=== PATIENT | female | born 2000 | race Hispanic/Latino ===

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

== ENCOUNTER 2019-01-10 20:41 | Observation (INO) | payer SELFPAY ==
[~2019-01-10 20:41] MED LIST: Dexamethasone 20 MG/5 ML VIAL ONE; Glycopyrrolate 0.2 MG/ML 5 ML SYRINGE ONE; Lidocaine 1% PF 5 ML VIAL ONE; Ondansetron PF 4 MG/2 ML Vial ONE; PROPOFOL 200 MG/20 ML VIAL ONE; Rocuronium Bromide 10 MG/ML (10ML VIAL) ONE; Succinylcholine Chloride 20 MG/ML 10 ml SYRINGE FS ONE
[2019-01-10] MEDS ORDERED: Bupivacaine/Epinephrine 0.25% 30 ML VIAL ONE (21:45)
[2019-01-10] MEDS ORDERED: Fentanyl 100 MCG/2 ML VIAL ONE (21:48)
[2019-01-10] MEDS ORDERED: Insulin Regular 300 UNITS/3 ML VIAL SC SCH (22:00)
[2019-01-10] MEDS ORDERED: Ondansetron PF 4 MG/2 ML Vial IVP PRN (22:10)
[2019-01-10] MEDS ORDERED: Promethazine HCl 25 MG/ML VIAL IM PRN ×2 (22:10→23:17)
[2019-01-10] MEDS ORDERED: Dextrose 50% Abboject 50 ML SYRINGE SLOW IVP PRN (22:10)
[2019-01-10] MEDS ORDERED: HumaLOG 300 UNITS/3 ML VIAL SC PRN (22:10)
[2019-01-10] MEDS ORDERED: Dextrose 5% in Water 1,000 ML IV PRN (22:10)
[2019-01-10] MEDS ORDERED: Acetaminophen 500 MG TAB PO PRN (22:15)
[2019-01-10] MEDS ORDERED: traMADol HCl 50 MG TAB PO PRN (22:15)
[2019-01-10] MEDS ORDERED: Ibuprofen 800 MG TAB PO PRN (22:15)
[2019-01-10] MEDS ORDERED: ceFOXitin 1 GM VIAL ONE (22:40)
[2019-01-10 23:07] VITALS: BMI 33.0
--- NOTE | 2019-01-10 23:15 | HP ---
HISTORY OF PRESENT ILLNESS: Ms. Fabian is a 18-year-old woman with history of chronic depression, type 1 diabetes mellitus, and gastroesophageal reflux disease, who presented to the Hospital with periumbilical abdominal pain, which started 2 days previously. The pain had intensified and settled in the right lower quadrant since yesterday. The pain is now associated with multiple episodes of nausea with one bout of emesis. She admits to chills, but no fever. She has alternating episodes of constipation and diarrhea for the last 2 days. The patient was evaluated with a CT scan of the abdomen and pelvis and transferred to the care of this surgical team. PAST MEDICAL HISTORY: Significant for type 1 diabetes mellitus since age 9, chronic anxiety/depression, and gastroesophageal reflux disease. PAST SURGICAL HISTORY: Pertinent for tonsillectomy and adenoidectomy. SOCIAL HISTORY: She is single. She lives with her parents. She used to smoke a pack of cigarettes per week and did so for about 5 years. She has not smoked over the last 3 months. She denies any ethanol or illicit drug abuse. FAMILY HISTORY: Notable for both parents with diabetes mellitus, mother with heart disease, father with hyperlipidemia. She has a maternal grandmother with liver cancer. CURRENT MEDICATIONS: Lantus insulin 80 units twice daily. She does not take any medicines for the gastroesophageal reflux disease or depression. ALLERGIES: TO LATEX, NATURAL RUBBER, AND ADHESIVE TAPE. SHE HAS NO KNOWN DRUG ALLERGIES, OTHERWISE. REVIEW OF SYSTEMS: A 10-point review of systems is essentially unremarkable except as stated in the past medical history and chief complaint. PHYSICAL EXAMINATION: GENERAL: This reveals a 18-year-old normally developed woman, who is otherwise coherent and interactive and appears stated age. The patient is alert and oriented x3, appears to be in no acute distress at the time of my evaluation. VITAL SIGNS: Blood pressure 124/82, pulse is 96, respiratory rate is 18, temperature 98.7 degrees Fahrenheit, and oxygen saturation is 99% on room air. HEENT: Normocephalic and atraumatic. Her pupils are equal, round, and reactive to light and accommodation. Extraocular muscles are intact bilaterally. No scleral icterus present. HEART: Regular rate and rhythm. No murmurs or gallops auscultated. LUNGS: Clear to auscultation bilaterally. Breathing, regular and nonlabored. ABDOMEN: Soft and obese. She has right lower quadrant tenderness at McBurney' s. She has a positive Rovsing sign. Liver and spleen nonpalpable below costal margin. NEUROLOGIC: No focal deficits present. EXTREMITIES: 2+ radial and pedal pulses bilaterally. No ankle edema is present. LABORATORY STUDIES: From [place] include a CBC with 11,100 white blood cells, hemoglobin and hematocrit of 14.0 and 42.7 respectively. Platelet count 237,000. Metabolic profile: Sodium 135, potassium is 3.7, chloride is 104, bicarbonate 19, BUN 4, creatinine is 0.60, glucose was 334, repeated here bedside glucose noted at 277. Serum test is negative. DIAGNOSTIC DATA: I have personally reviewed the CT scan of the abdomen and pelvis obtained from [place], which is remarkable for dilated appendix with periappendiceal fat-stranding and small free pelvic fluid. IMPRESSION: Acute appendicitis. PLAN: 1. Laparoscopic appendectomy. 2. I have advised the patient of the risks and benefits of the proposed surgery to include, but not limited to bleeding, infection, injury to bowel or surrounding structures. 3. These informations will be provided with the patient in the presence of her parents. 4. They all indicate understanding of information given, and the patient is going to consent for this admission and surgical intervention. Job ID: [id number] [facility]
[2019-01-10] MEDS ORDERED: Ondansetron HCl/PF 4 MG/2 ML Vial IVP PRN (23:17)
[2019-01-10] MEDS ORDERED: Meperidine HCl/PF 25 MG/ML VIAL ONE (23:17)
[2019-01-10] MEDS ORDERED: Promethazine HCl 25 MG/ML VIAL SLOW IVP PRN (23:17)
[2019-01-10] MEDS ORDERED: Meperidine HCl/PF 25 MG/ML VIAL SLOW IVP PRN (23:17)
[2019-01-10] MEDS ORDERED: Insulin Regular 300 UNITS/3 ML VIAL ONE (23:55)
--- NOTE | 2019-01-11 00:01 | OP ---
DATE OF PROCEDURE: 01/10/2019 PREOPERATIVE DIAGNOSIS: Acute appendicitis. POSTOPERATIVE DIAGNOSIS: Acute appendicitis. OPERATION PERFORMED: Laparoscopic appendectomy. ANESTHESIA: General endotracheal. ESTIMATED BLOOD LOSS: 5 mL. FLUIDS GIVEN: 1000 mL of crystalloids. COUNTS: Sponge and instrument counts were verified as correct x2. COMPLICATIONS: None apparent at the time of operation. INDICATIONS FOR OPERATION: This is a 18-year-old woman presented with 2-day history of periumbilical abdominal pain which is settled in the right lower quadrant over the last 24 hours. Clinical radiographic examination was consistent with acute appendicitis for which the patient was brought to the operating room for laparoscopic appendectomy. Findings are consistent with dilated appendix in a retrocecal position. No evidence of perforation present. DESCRIPTION OF PROCEDURE: Informed consent was obtained from the patient. She was brought to the operating room and placed in supine position. Following general anesthesia, a Storey catheter was inserted and placed to bedside drain. The abdomen was sterilely prepped and draped in usual fashion. The skin below the umbilicus was infiltrated with 0.25% Marcaine with epinephrine. A small curvilinear infraumbilical incision was made using an 11 scalpel. The umbilical stalk was grasped with Jayesh and elevated. A Veress needle was inserted through the incision and placed in the peritoneal cavity through which the abdomen was insufflated with 3 L of CO2 gas. Intraabdominal pressure was noted at 2 mmHg. Following abdominal insufflation, the Veress needle was removed. A 5-mm trocar was introduced using a Visiport under laparoscopy. Laparoscopy confirmed proper placement of the port, no injuries to underlying structures. Additional laparoscopy revealed the right lower quadrant partially obscured by omental adhesions. Under direct laparoscopy, one 5 mm suprapubic and another 5 mm left lower quadrant ports were placed after the overlying skin was infiltrated 0.25% Marcaine with epinephrine and appropriate incision was made. The patient was placed in a Trendelenburg position, rotated to her left. I introduced a Prestige grasper through the left lower quadrant port site using this to bluntly take down omental adhesions to reveal the cecum and the terminal ileum which to the right lateral gutter. I then used a LigaSure device to take down fibrotic attachments to the right lateral gutter, mobilizing the terminal ileum and the cecum medially. A retrocecal appendix was noted. I introduced the Endo [place] forceps through the suprapubic port site grasping the appendix which was elevated. Then used LigaSure device to serially divide the mesoappendix down to the base with good hemostasis. The appendix itself was divided at the appendiceal-cecal junction between endo-loops. The appendix was delivered of the abdominal cavity using an EndoCatch. Operative site was inspected for good hemostasis. Finding no other pathology, laparoscopy was terminated. Fascia of the left lower quadrant port was closed using 0 Vicryl suture and endo-closure device under laparoscopy. The abdomen was desufflated. All ports and instruments were removed and accounted for. The skin incision was closed using 4-0 Monocryl suture in a subcuticular fashion. Dermabond was applied over the incisional closure. The patient tolerated the operation without any apparent complication and was returned to the recovery room in satisfactory condition. Job ID: [id number]
[2019-01-11] MEDS ORDERED: Fentanyl 100 MCG/2 ML VIAL ONE (00:12)
[2019-01-11] MEDS: traMADol HCl 50 MG TAB PO PRN ×2 (03:05→11:08)
[2019-01-11 08:51] VITALS: BP 109/66; TEMP 98.4
[2019-01-11] MEDS ORDERED: Famotidine/PF 20 mg/2ml Vial SLOW IVP SCH (09:00)
[2019-01-11] MEDS ORDERED: Enoxaparin Sodium 40 MG/0.4 ML SYRINGE SC SCH (09:00)
--- NOTE | 2019-01-11 09:56 | DIS ---
DATE OF ADMISSION: 01/10/2019 DATE OF DISCHARGE: 01/11/2019 ADMITTING PHYSICIAN: Jeovany Dupree DO. ADMITTING DIAGNOSIS: Acute appendicitis. DISCHARGE DIAGNOSIS: Acute appendicitis. OPERATION PERFORMED: Laparoscopic appendectomy by Dr. Dupree. Please see a separate dictation for operative report. HISTORY AND HOSPITAL COURSE: A 18-year-old woman presented with a 2-day history of abdominal pain. Clinical radiographic examination was consistent with acute appendicitis, for which the patient was brought to the operating room for appendectomy. For an uneventful surgery, she was admitted to the surgical floor, where she remained at the time of discharge. Postop day #1, she is ambulating with minimal difficulty. Pain is adequately controlled on oral analgesics. She is tolerating diet, having normal bowel and urinary function. Incisional wounds remain intact, clean, dry. The patient will be discharged home today with the following instructions: 1. She sees me in the [facility] in 2 weeks. 2. She is to avoid weightlifting in excess of 20 pounds until she has been released by me. 3. She may shower, but no baths or swimming until she has been seen by me. 4. She may take Tylenol 650 mg p.o. q.4 hours alternating this with ibuprofen 800 mg p.o. q.8 hours. Additionally, she is given a prescription for tramadol 50 mg #20 one refill to be taken 1 to 2 p.o. q.6 hours p.r.n. breakthrough pain. 5. She may resume all her hospital medications as prescribed by her primary care physician. 6. I specifically advised the patient to ambulate vigorously and frequently to avoid complications of venous thromboembolism as she is on oral control pills and having had abdominal surgery. There is a high risk for VTE. She indicates understanding of this information I provided from her nurse. The patient is to call me with any questions or problems including exacerbation of abdominal pain, intolerance to oral intake, any abnormal drainage from the wounds or fever in excess of 101 degrees Fahrenheit. The patient indicates understanding of the instructions given to her in writing. She has expressed gratitude for the care entire time during this hospitalization and surgery. Job ID: [id number]
== END 2019-01-11 12:54 | disposition home or self-care (01) ==
LOC: SURG B 20:41
PROVIDERS: ADMIT Surgery; ATTEND Surgery
PROC: 0DTJ4ZZ Resection of Appendix, Percutaneous Endoscopic Approach (ICD-10-PCS; principal; 2019-01-11)
DX: K35.80 Unspecified acute appendicitis (principal); F32.9 Major depressive disorder, single episode, unspecified; K21.9 Gastro-esophageal reflux disease without esophagitis; E10.9 Type 1 diabetes mellitus without complications; Z90.89 Acquired absence of other organs; Z87.891 Personal history of nicotine dependence; Z91.040 Latex allergy status; Z91.09 Other allergy status, other than to drugs and biological substances; Z88.8 Allergy status to other drugs, medicaments and biological substances; Z79.4 Long term (current) use of insulin; Z79.899 Other long term (current) drug therapy
CPT/HCPCS: 36416; 88304; G0378; J0131; J0694; J1100; J1650; J1815; J2001; J2175; J2405; J2704; J3010; S0028

== ENCOUNTER 2019-03-02 22:21 | Emergency (ER) | payer SELFPAY ==
[2019-03-02 23:32] LABS: Bilirubin Negative (Negative); Blood, Urine Trace (Negative); Clarity Turbid (Clear); Glucose, Urine (Dipstick) 500 mg/dL (Negative); Leukocyte Small (Negative); Nitrite Negative (Negative); Protein, Urine (Dipstick) Negative (Neg-Trace); Specific Gravity, Urine 1.015 (1.005-1.030); Urobilinogen 0.2 mg/dL (0.2-1.0)
[2019-03-02 23:33] LABS: Bacteria/HPF 3+ HPF (None Seen); Hyaline Casts/LPF NONE SEEN LPF (0-3 Hyaline); RBC/HPF 0-3 HPF (0-3); Squamous Epithelial 0-3 HPF (0-3); WBC/HPF 21-50 HPF (0-3); Yeast-All Forms Rare HPF (None Seen)
[2019-03-02 23:34] LABS: Pregnancy Test - Urine (BHCG) Negative (Negative); Pregu Control Background? CLEAR/WHITE (CLR/WHITE); Pregu Control Bar Appear? YES (CONTROL BAR); Specific Gravity 1.015 (1.002-1.036)
== END 2019-03-03 00:05 | disposition home or self-care (01) ==
LOC: SCSER 22:21
DX: A60.00 Herpesviral infection of urogenital system, unspecified (principal); E11.9 Type 2 diabetes mellitus without complications; K21.9 Gastro-esophageal reflux disease without esophagitis; F41.9 Anxiety disorder, unspecified; F32.9 Major depressive disorder, single episode, unspecified; G47.00 Insomnia, unspecified; Z87.891 Personal history of nicotine dependence
CPT/HCPCS: 81003; 81015; 81025; 87077; 87086; 99283

== ENCOUNTER 2019-03-17 22:04 | Emergency (ER) | payer SELFPAY ==
[2019-03-17 23:28] LABS: Bilirubin Negative (Negative); Blood, Urine Trace (Negative); Clarity Clear (Clear); Glucose, Urine (Dipstick) 500 mg/dL (Negative); Leukocyte Negative (Negative); Nitrite Negative (Negative); Protein, Urine (Dipstick) Negative (Neg-Trace); Urobilinogen 0.2 mg/dL (0.2-1.0); pH, Urine 5.5 (5.0-9.0)
[2019-03-17 23:29] LABS: Pregnancy Test - Urine (BHCG) Negative (Negative); Pregu Control Background? CLEAR/WHITE (CLR/WHITE); Pregu Control Bar Appear? YES (CONTROL BAR)
[2019-03-17 23:36] LABS: RBC/HPF 0-3 HPF (0-3)
[2019-03-17 23:37] LABS: Bacteria/HPF None Seen HPF (None Seen); Hyaline Casts/LPF NONE SEEN LPF (0-3 Hyaline); Squamous Epithelial 0-3 HPF (0-3); WBC/HPF 0-3 HPF (0-3)
== END 2019-03-18 00:55 | disposition home or self-care (01) ==
LOC: SCSER 22:04
DX: A60.09 Herpesviral infection of other urogenital tract (principal); B37.3 Candidiasis of vulva and vagina; E11.9 Type 2 diabetes mellitus without complications; K21.9 Gastro-esophageal reflux disease without esophagitis; F41.9 Anxiety disorder, unspecified; F32.9 Major depressive disorder, single episode, unspecified; G47.00 Insomnia, unspecified; Z87.891 Personal history of nicotine dependence
CPT/HCPCS: 81003; 81015; 81025; 87491; 87591; 99283

== ENCOUNTER 2019-04-07 18:22 | Emergency (ER) | payer SELFPAY | END 2019-04-07 19:08 | disposition home or self-care (01) | LOC: SCSER 18:22 | DX: A60.04 Herpesviral vulvovaginitis (principal); E11.9 Type 2 diabetes mellitus without complications; K21.9 Gastro-esophageal reflux disease without esophagitis; Z87.891 Personal history of nicotine dependence | CPT/HCPCS: 99283 ==

== ENCOUNTER 2019-05-24 19:50 | Emergency (ER) | payer SELFPAY | END 2019-05-24 20:47 | disposition home or self-care (01) | LOC: SCSER 19:50 | DX: N89.8 Other specified noninflammatory disorders of vagina (principal); E11.9 Type 2 diabetes mellitus without complications; K21.9 Gastro-esophageal reflux disease without esophagitis; F41.9 Anxiety disorder, unspecified; F32.9 Major depressive disorder, single episode, unspecified; G47.00 Insomnia, unspecified; Z87.891 Personal history of nicotine dependence; Z79.4 Long term (current) use of insulin | CPT/HCPCS: 99281 ==

== ENCOUNTER 2021-06-25 18:27 | Emergency (ER) | payer MEDICAID | END 2021-06-25 21:49 | disposition left against medical advice (07) | LOC: ERS 18:27 | DX: Z53.21 Procedure and treatment not carried out due to patient leaving prior to being seen by health care provider (principal) | CPT/HCPCS: 36415; 76856; 84702 ==

== ENCOUNTER 2023-08-13 19:23 | Emergency (ER) | payer OTHER | END 2023-08-13 21:44 | disposition home or self-care (01) | LOC: ERS 19:23 | DX: S93.602A Unspecified sprain of left foot, initial encounter (principal); E11.9 Type 2 diabetes mellitus without complications; K21.9 Gastro-esophageal reflux disease without esophagitis; F17.290 Nicotine dependence, other tobacco product, uncomplicated; Z79.4 Long term (current) use of insulin; W18.43XA Slipping, tripping and stumbling without falling due to stepping from one level to another, initial encounter ==

== ENCOUNTER 2024-10-31 03:35 | Emergency (ER) | payer OTHER ==
[2024-10-31 04:09] LABS: Analyzer IN Cardio ER; Base Excess -10.2 mEq/L (-2.0 to +3.0); Calcium, Ionized (venous) 1.07 mmol/L (1.16-1.32); Chloride (VBG) 99 mmol/L (98-106); Hematocrit-VBG 38 % (36.0-47.0); Potassium (VBG) 3.58 mmol/L (3.70-5.30); Sodium 134 mmol/L (133-146); pH (venous) 7.342 (7.32-7.43)
[2024-10-31 04:14] LABS: Actual Bicarbonate (HCO3v) 13.8 mEq/L (22-28)
[2024-10-31 04:15] LABS: #Basophils 0.04 10x3/uL (0.0-0.2); #Eosinophils Less than 0.03 10x3/uL (0.0-0.7); %Basophils 0.5 % (0.0-1.0); %Eosinophils 0.1 % (0.0-10.0); %Lymphocytes 15.8 % (21.0-51.0); %Monocytes 3.5 % (0.0-10.0); %Neutrophils 79.5 % (42.0-75.0); Hematocrit 36.9 % (36.0-47.0); Hemoglobin 12.8 g/dL (12.0-16.0); Mean Corpuscular HGB CONC 34.7 g/dL (32.0-36.0); Mean Corpuscular Hemoglobin 29.5 pg (27.0-31.0); Platelet Count 406 10x3/uL (130-400); RBC Distribution Width 11.7 % (11.5-14.5); Red Blood Cell (RBC) Count 4.34 mill/uL (4.20-5.40)
[2024-10-31 05:09] LABS: Acetaminophen Less than 10 mcg/mL (Less than 10); Alcohol 126.2 mg/dL (Less than 10); Salicylate Less than 8.0 mg/dL (Less than 8.0)
[2024-10-31 05:10] LABS: ALT (SGPT) 10 U/L (8-55); AST (SGOT) 12 U/L (5-34); Albumin 3.6 g/dL (3.5-5.0); Alkaline Phosphatase 104 U/L (40-110); Anion Gap 18 mmol/L (10-20); BUN (Urea Nitrogen) 8 mg/dL (7.0-18.7); Bilirubin, Total 0.3 mg/dL (0.2-1.2); Calc. Creatinine Clearance 0 mL/min (70-130); Calcium 8.5 mg/dL (7.8-10.44); Carbon Dioxide 12 mmol/L (22-29); Chloride 103 mmol/L (98-107); Estimated GFR 106; Globulin 4.2 g/dL (2.4-3.5); Glucose 708 mg/dL (70-105); Magnesium 2.1 mg/dL (1.6-2.6); Potassium 3.5 mmol/L (3.5-5.1); Protein, Total 7.8 g/dL (6.0-8.3); Sodium 129 mmol/L (136-145)
[2024-10-31 05:13] LABS: Bacteria/HPF 3+ HPF (None Seen); Bilirubin Negative (Negative); Blood, Urine 3+ (Negative); CAUTI Indications for Culture Dysuria,urgency,freq; Clarity Clear (Clear); Glucose, Urine (Dipstick) Greater than 1000 mg/dL (Negative); Ketone, Urine Negative (Negative); Leukocyte Negative Leu/uL (Negative); Nitrite Negative (Negative); Pregnancy Test - Urine (BHCG) Negative (Negative); Pregu Control Background? CLEAR/WHITE (CLR/WHITE); Pregu Control Bar Appear? YES (CONTROL BAR); Protein, Urine (Dipstick) Negative (Neg-Trace); RBC/HPF 0-3 HPF (0-3); Specific Gravity 1.018 (1.002-1.036); Specific Gravity, Urine 1.018 (1.002-1.036); Squamous Epithelial 0-3 HPF (0-3); Urobilinogen Normal mg/dL (Less than 2)
[2024-10-31 05:14] LABS: Urine Culture Reflex No No
[2024-10-31] MEDS ORDERED: Acetaminophen 500 MG TAB ONE (06:27)
[2024-10-31] MEDS ORDERED: Insulin Regular, Human 100 UNIT/ML 10 ML VIAL ONE (06:27)
== END 2024-10-31 07:58 | disposition home or self-care (01) ==
LOC: ERS 03:35
DX: S40.812A Abrasion of left upper arm, initial encounter (principal); E11.65 Type 2 diabetes mellitus with hyperglycemia; F17.290 Nicotine dependence, other tobacco product, uncomplicated; V49.09XA Driver injured in collision with other motor vehicles in nontraffic accident, initial encounter; Y93.89 Activity, other specified
CPT/HCPCS: 36415; 36416; 80053; 80307; 81001; 81025; 82010; 82805; 83735; 84100; 85025; 93005; 99285; J1815

== ENCOUNTER 2025-10-10 13:33 | Inpatient (IN) | payer OTHER ==
[2025-10-10 16:00] LABS: #Basophils 0.06 10x3/uL (0.0-0.2); #Eosinophils 0.10 10x3/uL (0.0-0.7); #Monocytes 0.30 10x3/uL (0.11-0.59); #Neutrophils 5.49 10x3/uL (1.40-6.50); %Basophils 0.8 % (0.0-1.0); %Eosinophils 1.3 % (0.0-10.0); %Lymphocytes 20.3 % (21.0-51.0); %Monocytes 4.0 % (0.0-10.0); %Neutrophils 72.7 % (42.0-75.0); Hematocrit 38.6 % (36.0-47.0); Hemoglobin 12.6 g/dL (12.0-16.0); Mean Corpuscular Hemoglobin 27.7 pg (27.0-31.0); Mean Corpuscular Volume 84.8 fL (78.0-98.0); Platelet Count 436 10x3/uL (130-400); Red Blood Cell (RBC) Count 4.55 mill/uL (4.20-5.40); White Blood Cell (WBC) Count 7.55 10x3/uL (4.8-10.8)
[2025-10-10 16:13] LABS: INR-International Normal Ratio 1.0; PTT 28.6 sec (22.9-36.1); Prothrombin Time 13.1 sec (12.0-14.7)
[2025-10-10 16:31] LABS: ALT (SGPT) Less than 7 U/L (Less than 34); AST (SGOT) 11 U/L (11-34); Albumin 3.6 g/dL (3.1-4.5); Alkaline Phosphatase 145 U/L (40-110); Anion Gap 16 mmol/L (10-20); BUN (Urea Nitrogen) 14 mg/dL (7.0-18.7); Bilirubin, Total 0.1 mg/dL (0.3-1.2); Calc. Creatinine Clearance 0 mL/min (70-130); Calcium 9.2 mg/dL (7.8-10.44); Carbon Dioxide 22 mmol/L (22-29); Chloride 94 mmol/L (98-107); Globulin 4.6 g/dL (2.4-3.5); Glucose 774 mg/dL (70-105); Potassium 4.3 mmol/L (3.5-5.1); Sodium 128 mmol/L (136-145)
[2025-10-10] MEDS ORDERED: Acetaminophen 500 MG TAB ONE (17:25)
[2025-10-10] MEDS ORDERED: Glucagon 1 MG/ML KIT IM PRN (17:38)
[2025-10-10] MEDS ORDERED: Dextrose 50% Abboject 50 ML SYRINGE SLOW IVP PRN (17:38)
[2025-10-10] MEDS ORDERED: hydrALAZINE 20 MG/ML VIAL SLOW IVP PRN (17:42)
[2025-10-10 18:31] VITALS: BMI 25.7
[2025-10-10 20:13] LABS: Glucose, Urine (Dipstick) >=1000 mg/dL (Negative); Leukocyte Negative (Negative); Protein, Urine (Dipstick) Negative (Neg-Trace); Specific Gravity, Urine 1.010 (1.005-1.030)
[2025-10-10] MEDS: Aspirin 81 mg Enteric Coated Tablet PO SCH (20:15)
[2025-10-10] MEDS: Insulin Glargine 30 UNITS/0.3 ML VIAL SC SCH (20:15)
[2025-10-10 20:16] LABS: Pregnancy Test - Urine (BHCG) Negative (Negative); Pregu Control Background? CLEAR/WHITE (CLR/WHITE); Pregu Control Bar Appear? YES (CONTROL BAR)
[2025-10-10 20:23] LABS: Cocaine Metabolite Screen Negative (Negative); THC/Cannabinoid Screen Negative (Negative); Tricyclic Screen Negative (Negative)
[2025-10-11 04:05] LABS: #Basophils 0.07 10x3/uL (0.0-0.2); #Eosinophils 0.22 10x3/uL (0.0-0.7); #Monocytes 0.47 10x3/uL (0.11-0.59); #Neutrophils 6.03 10x3/uL (1.40-6.50); %Basophils 0.7 % (0.0-1.0); %Eosinophils 2.3 % (0.0-10.0); %Lymphocytes 29.1 % (21.0-51.0); %Monocytes 4.8 % (0.0-10.0); %Neutrophils 62.1 % (42.0-75.0); Hematocrit 33.7 % (36.0-47.0); Hemoglobin 10.9 g/dL (12.0-16.0); Mean Corpuscular Hemoglobin 27.9 pg (27.0-31.0); Mean Corpuscular Volume 86.2 fL (78.0-98.0); Platelet Count 390 10x3/uL (130-400); Red Blood Cell (RBC) Count 3.91 mill/uL (4.20-5.40); White Blood Cell (WBC) Count 9.72 10x3/uL (4.8-10.8)
[2025-10-11 04:23] LABS: Anion Gap 18 mmol/L (10-20); BUN (Urea Nitrogen) 9 mg/dL (7.0-18.7); Calc. Creatinine Clearance 154 mL/min (70-130); Calcium 8.7 mg/dL (7.8-10.44); Carbon Dioxide 21 mmol/L (22-29); Cardiac Risk 5.0 (Less than 4.5); Chloride 101 mmol/L (98-107); Cholesterol 241 mg/dl (< 200 Desired); Glucose 443 mg/dL (70-105); HDL Cholesterol 48 mg/dL (>60 Neg Risk); LDL Cholesterol, Calculated 115 mg/dL; Magnesium 1.7 mg/dL (1.6-2.6); Potassium 3.8 mmol/L (3.5-5.1); Sodium 136 mmol/L (136-145); Triglycerides 392 mg/dL (Less than 150)
[2025-10-11] MEDS: Acetaminophen 325 MG TAB PO PRN (05:55)
[2025-10-11] MEDS: Aspirin 81 mg Enteric Coated Tablet PO SCH (08:46)
[2025-10-11] MEDS: Insulin Glargine 30 UNITS/0.3 ML VIAL SC SCH ×2 (08:46→12:06)
[2025-10-11] MEDS: Enoxaparin 40 MG (0.4 mL) SYRINGE SC SCH (08:46)
[2025-10-11] MEDS ORDERED: Iopamidol-370 76% 500 ML MDV (1 ML CHARGE) ONE (12:01)
[2025-10-11] MEDS: Sertraline 25 MG TAB PO SCH (12:06)
[2025-10-11] MEDS: Ondansetron PF 4 MG/2 ML Vial IVP PRN (15:13)
[2025-10-11 16:18] LABS: Vitamin B12 608 pg/mL (211-911)
[2025-10-11 16:33] LABS: HIV (1/2) Antibody/Antigen NONREACTIVE (NonReactive); HIV 1/2 INDEX 0.07 S/CO (<1.00)
[2025-10-11 20:16] LABS: Syphilis Antibody Index 0.59 S/CO (<1.00 Non-Reactive)
[2025-10-11] MEDS: Melatonin 3 MG TAB PO SCH (23:56)
[2025-10-12 03:41] LABS: #Basophils 0.08 10x3/uL (0.0-0.2); #Eosinophils 0.16 10x3/uL (0.0-0.7); #Monocytes 0.52 10x3/uL (0.11-0.59); #Neutrophils 4.68 10x3/uL (1.40-6.50); %Basophils 0.9 % (0.0-1.0); %Eosinophils 1.8 % (0.0-10.0); %Lymphocytes 38.0 % (21.0-51.0); %Monocytes 5.8 % (0.0-10.0); %Neutrophils 52.1 % (42.0-75.0); Hematocrit 34.8 % (36.0-47.0); Hemoglobin 11.3 g/dL (12.0-16.0); Mean Corpuscular Hemoglobin 27.8 pg (27.0-31.0); Mean Corpuscular Volume 85.5 fL (78.0-98.0); Platelet Count 396 10x3/uL (130-400); Red Blood Cell (RBC) Count 4.07 mill/uL (4.20-5.40); White Blood Cell (WBC) Count 8.98 10x3/uL (4.8-10.8)
[2025-10-12 04:03] LABS: Anion Gap 14 mmol/L (10-20); BUN (Urea Nitrogen) 20 mg/dL (7.0-18.7); Calc. Creatinine Clearance 149 mL/min (70-130); Calcium 9.4 mg/dL (7.8-10.44); Carbon Dioxide 25 mmol/L (22-29); Chloride 99 mmol/L (98-107); Glucose 334 mg/dL (70-105); Magnesium 1.8 mg/dL (1.6-2.6); Potassium 4.4 mmol/L (3.5-5.1); Sodium 134 mmol/L (136-145)
[2025-10-12] MEDS: Sertraline 25 MG TAB PO SCH (08:27)
[2025-10-12 12:58] LABS: Glucose 530 mg/dL (70-105)
[2025-10-12] MEDS: metFORMIN 850 MG TAB PO SCH (16:32)
[2025-10-12 17:45] LABS: Glucose 567 mg/dL (70-105)
[2025-10-12 18:46] LABS: Anion Gap 13 mmol/L (10-20); BUN (Urea Nitrogen) 21 mg/dL (7.0-18.7); Calc. Creatinine Clearance 109 mL/min (70-130); Calcium 9.0 mg/dL (7.8-10.44); Carbon Dioxide 23 mmol/L (22-29); Chloride 98 mmol/L (98-107); Glucose 521 mg/dL (70-105); Potassium 4.3 mmol/L (3.5-5.1); Sodium 130 mmol/L (136-145)
[2025-10-12] MEDS: Insulin Glargine 30 UNITS/0.3 ML VIAL SC SCH (21:49)
[2025-10-13 10:07] VITALS: BMI 25.7
[2025-10-13] MEDS: Insulin Glargine 30 UNITS/0.3 ML VIAL SC SCH (21:28)
[2025-10-13] MEDS: FLU (Fluarix Triv) 25-26 (6MOS UP)/PF 45 MCG/0.5 ML Syringe IM ONE (21:29)
[2025-10-13] MEDS: Melatonin 3 MG TAB PO PRN (21:29)
[2025-10-14 04:42] LABS: Anion Gap 10 mmol/L (10-20); BUN (Urea Nitrogen) 11 mg/dL (7.0-18.7); Calc. Creatinine Clearance 157 mL/min (70-130); Calcium 9.0 mg/dL (7.8-10.44); Carbon Dioxide 27 mmol/L (22-29); Chloride 107 mmol/L (98-107); Glucose 210 mg/dL (70-105); Potassium 3.6 mmol/L (3.5-5.1); Sodium 140 mmol/L (136-145)
[2025-10-14 11:29] VITALS: BP 133/86; TEMP 98.7
== END 2025-10-14 13:47 | disposition home or self-care (01) | DRG 638 ==
LOC: ERS 13:33 → 2SE 16:52
PROVIDERS: ADMIT Internal Medicine; ATTEND Internal Medicine
DX: E11.65 Type 2 diabetes mellitus with hyperglycemia (principal); G37.2 Central pontine myelinolysis; K21.9 Gastro-esophageal reflux disease without esophagitis; F17.290 Nicotine dependence, other tobacco product, uncomplicated; F32.A Depression, unspecified; E11.42 Type 2 diabetes mellitus with diabetic polyneuropathy; Z90.49 Acquired absence of other specified parts of digestive tract; Z98.890 Other specified postprocedural states; G47.00 Insomnia, unspecified; Z79.4 Long term (current) use of insulin; Z79.899 Other long term (current) drug therapy; Z91.040 Latex allergy status; Z88.8 Allergy status to other drugs, medicaments and biological substances; Z91.048 Other nonmedicinal substance allergy status; Z91.141 Patient's other noncompliance with medication regimen due to financial hardship; W18.30XA Fall on same level, unspecified, initial encounter
CPT/HCPCS: 36415; 36416; 70450; 70496; 70498; 70551; 71046; 80048; 80053; 80061; 80306; 81003; 81025; 82010; 82607; 83036; 83735; 84425; 84443; 84484; 85025; 85610; 85730; 86141; 86780; 87389; 93005; 93306; 93880; 96360; J1650; J1815; J2405; J3411; J7030; Q9967